=== PATIENT | male | born 1990 | race Caucasian/White ===

== ENCOUNTER 2019-01-21 17:10 | Emergency (ER) | payer OTHER ==
[~2019-01-21] VITALS: Ht 175.3 cm; Wt 59.0 kg
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
--- NOTE | 2019-01-21 17:20 | NUR ---
PT CAME IN WITH IV LINE ON L AC 18G BY PRESSURE TEST OPERATOR.
[2019-01-21 17:50] VITALS: BP 127/76
--- NOTE | 2019-01-21 17:54 | NUR ---
IV LINE DC
--- NOTE | 2019-01-21 17:55 | NUR ---
Patient discharged to home in stable condition. Written and verbal after care instructions given. Patient verbalizes understanding of instruction.
== END 2019-01-21 18:03 | disposition home or self-care (01) ==
LOC: ER 17:17
DX: S60.511A Abrasion of right hand, initial encounter (principal); S19.80XA Other specified injuries of unspecified part of neck, initial encounter; V43.52XA Car driver injured in collision with other type car in traffic accident, initial encounter; W25.XXXA Contact with sharp glass, initial encounter; Y93.89 Activity, other specified; Y92.89 Other specified places as the place of occurrence of the external cause; Y99.0 Civilian activity done for income or pay